=== PATIENT | female | born 1955 | race Caucasian/White ===

== ENCOUNTER 2017-01-18 13:57 | Observation (INO) | payer BC ==
[~2017-01-18] VITALS: Ht 167.6 cm; Wt 57.0 kg
[2017-01-18] VITALS (10 sets, daily range): BP systolic 85–140; BP diastolic 43–68; PULSE 50–68; RESP 18; TEMP 96.8–98.2; O2SAT 95–100
--- NOTE | 2017-01-18 14:20 | PD ---
HPI Chief Complaint: Chest Pain Time Seen by Provider: 14:19 Travel History International Travel<30 days: No Contact w/Intl Traveler<30days: No Traveled to known affect area: No History of Present Illness HPI 60-year-old female came to the emergency room with history of sudden onset substernal chest pain that started at 1:30 PM when she came out of a store. Patient says the pain was 10 out of 10 and radiated to her neck on both sides. This was a severe dull ache which took her breath away as per the patient. It lasted for about 45 minutes after which it slowly started to ease off. Currently the pain is 3 out of 10 and mostly on her upper back. It has also made her very nauseous. Patient has history of coronary artery disease and had a stent put in in 2010 in [place]. Patient is from [place] and is here on vacation. 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 She takes 1 aspirin every day. Patient continues to smoke. No history of syncopal episode or diaphoresis. Patient says that she thought she would not have to come to the emergency room but the pain never got better. [facility] Past Medical History Narrative Medical List of her past medical, surgical, social and family history is reviewed from the nursing note. Cardiovascular Problems: Yes Past Surgical History Hysterectomy: Yes Social History Tobacco Use: Yes Allergies-Medications (Allergen,Severity, Reaction): Coded Allergies: No Known Allergies (Unverified , 01/18/17) Comments No known drug allergies. Reported Meds & Prescriptions Reported Meds & Active Scripts Active Reported Gabapentin 600 Mg Tab 600 Mg PO BID Metoprolol Succinate ER 24 HR (Metoprolol Succinate) 25 Mg Tab 25 Mg PO HS Atorvastatin (Atorvastatin Calcium) 80 Mg Tab 80 Mg PO HS Narrative Medication Waiting for the nurse to do the med reconciliation. Review of Systems Except as stated in HPI: all other systems reviewed are Neg Cardiovascular: Positive: Chest Pain or Discomfort Gastrointestinal: Positive: Nausea Physical Exam Narrative GENERAL: Awake, alert, anxious, mild distress SKIN: Focused skin assessment warm/dry. HEAD: Atraumatic. Normocephalic. EYES: Pupils equal and round. No scleral icterus. No injection or drainage. ENT: No nasal bleeding or discharge. Mucous membranes pink and moist. NECK: Trachea midline. No JVD. CARDIOVASCULAR: Regular rate and rhythm. No murmur appreciated. RESPIRATORY: No accessory muscle use. Clear to auscultation. Breath sounds equal bilaterally. GASTROINTESTINAL: Abdomen soft, non-tender, nondistended. Hepatic and splenic margins not palpable. MUSCULOSKELETAL: No obvious deformities. No clubbing. No cyanosis. No edema. NEUROLOGICAL: Awake and alert. No obvious cranial nerve deficits. Motor grossly within normal limits. Normal speech. PSYCHIATRIC: Appropriate mood and affect; insight and judgment normal. Data Data Last Documented VS Vital Signs Date Time Temp Pulse Resp B/P (MAP) Pulse Ox O2 Delivery O2 Flow Rate FiO2 01/18/17 15:27 68 18 114/68 (83) 98 Room Air 01/18/17 14:20 98.2 Orders Orders Electrocardiogram (01/18/17 14:33) Basic Metabolic Panel (Bmp) (01/18/17 14:33) Complete Blood Count With Diff (01/18/17 14:33) Magnesium (Mg) (01/18/17 14:33) Prothrombin Time / Inr (Pt) (01/18/17 14:33) Troponin I (01/18/17 14:33) Chest, Single Ap (01/18/17 14:33) Ecg Monitoring (01/18/17 14:33) Bilateral Bp Monitoring (01/18/17 14:33) Iv Access Insert/Monitor (01/18/17 14:33) Oximetry (01/18/17 14:33) Oxygen Administration (01/18/17 14:33) Aspirin Chew (Aspirin Chew) (01/18/17 14:45) Sodium Chloride 0.9% Flush (Ns Flush) (01/18/17 14:45) Ondansetron Inj (Zofran Inj) (01/18/17 14:45) Nitroglycerin Sl (Nitrostat Sl) (01/18/17 14:45) Admit Order (Ed Use Only) (01/18/17 15:51) Labs Laboratory Tests Test 01/18/17 14:40 White Blood Count 10.7 TH/MM3 Red Blood Count 4.41 MIL/MM3 Hemoglobin 13.4 GM/DL Hematocrit 41.2 % Mean Corpuscular Volume 93.4 FL Mean Corpuscular Hemoglobin 30.5 PG Mean Corpuscular Hemoglobin Concent 32.7 % Red Cell Distribution Width 14.4 % Platelet Count 242 TH/MM3 Mean Platelet Volume 9.5 FL Neutrophils (%) (Auto) 64.0 % Lymphocytes (%) (Auto) 27.3 % Monocytes (%) (Auto) 4.8 % Eosinophils (%) (Auto) 3.0 % Basophils (%) (Auto) 0.9 % Neutrophils # (Auto) 6.9 TH/MM3 Lymphocytes # (Auto) 2.9 TH/MM3 Monocytes # (Auto) 0.5 TH/MM3 Eosinophils # (Auto) 0.3 TH/MM3 Basophils # (Auto) 0.1 TH/MM3 CBC Comment DIFF FINAL Differential Comment Prothrombin Time 11.2 SEC Prothromb Time International Ratio 1.0 RATIO Blood Urea Nitrogen 12 MG/DL Creatinine 0.70 MG/DL Random Glucose 86 MG/DL Calcium Level 9.1 MG/DL Magnesium Level 1.9 MG/DL Sodium Level 142 MEQ/L Potassium Level 3.6 MEQ/L Chloride Level 107 MEQ/L Carbon Dioxide Level 25.4 MEQ/L Anion Gap 10 MEQ/L Estimat Glomerular Filtration Rate 85 ML/MIN Troponin I LESS THAN 0.02 NG/ML MDM Medical Decision Making Medical Screen Exam Complete: Yes Emergency Medical Condition: Yes Medical Record Reviewed: Yes Interpretation(s) Twelve-lead EKG was reviewed by me. Normal sinus rhythm, normal axis, right bundle branch block. Heart rate of 68 bpm. Differential Diagnosis ACS, non-STEMI, no specific chest pain Narrative Course 3:16 PM patient was given 2 baby aspirin and 1 sublingual nitroglycerin. Her chest pain is very classic for angina. Given her past medical history and continues smoking history I would like to keep her in the chest pain center if all the blood test results are negative. 3:51 PM blood test results of back and within acceptable limit. I'll admit her to the chest pain center. Awaiting for a chest x-ray. Procedures EKG Prior to Arrival: No Diagnosis Primary Impression: Chest pain Qualified Codes: R07.9 - Chest pain, unspecified Admitting Information Admitting Physician Requests: Meng Steiner MD Jan 18, 2017 14:20
[2017-01-18] MEDS ORDERED: NITROGLYCERIN 0.4 MG SL 25 TABS/BTL SL ONE (14:45)
[2017-01-18] MEDS ORDERED: ONDANSETRON HCL 4 MG/2 ML VIAL IV PUSH ONE (14:45)
[2017-01-18] MEDS ORDERED: ASPIRIN 81 MG CHEW TAB PO ONE (14:45)
[2017-01-18] MEDS ORDERED: SODIUM CHLORIDE 0.9% FLUSH 10 ML FLUSH IVF PRN (14:45)
[2017-01-18 15:21] LABS: AUTOMATED NEUTROPHIL # 6.9 TH/MM3 (1.8-7.7); BASOPHIL # 0.1 TH/MM3 (0-0.2); BASOPHIL % 0.9 % (0.0-2.0); EOSINOPHIL # 0.3 TH/MM3 (0-0.4); HEMATOCRIT 41.2 % (35.0-46.0); HEMO FLAGS DIFF FINAL; LYMPH % 27.3 % (9.0-44.0); LYMPHOCYTE # 2.9 TH/MM3 (1.0-4.8); MEAN CELL VOLUME 93.4 FL (80.0-100.0); MEAN CORPUSCULAR HEMOGLOBIN 30.5 PG (27.0-34.0); MEAN CORPUSCULAR HGB CONC 32.7 % (32.0-36.0); MONO % 4.8 % (0.0-8.0); PLATELET COUNT 242 TH/MM3 (150-450); RED BLOOD COUNT 4.41 MIL/MM3 (4.00-5.30); RED CELL DISTRIBUTION WIDTH 14.4 % (11.6-17.2); WHITE BLOOD COUNT 10.7 TH/MM3 (4.0-11.0)
[2017-01-18 15:24] LABS: PROTHROMBIN TIME - PATIENT 11.2 SEC (9.8-11.6)
[2017-01-18 15:37] LABS: ANION GAP 10 MEQ/L (5-15); BICARBONATE 25.4 MEQ/L (21.0-32.0); BLOOD UREA NITROGEN 12 MG/DL (7-18); CHLORIDE 107 MEQ/L (98-107); GLOMERULAR FILTRATION RATE 85 ML/MIN (>89); MAGNESIUM 1.9 MG/DL (1.5-2.5); POTASSIUM 3.6 MEQ/L (3.5-5.1); SODIUM (NA) 142 MEQ/L (136-145)
[2017-01-18] MEDS ORDERED: NITROGLYCERIN 0.4 MG SL 25 TABS/BTL SL PRN (16:00)
[2017-01-18] MEDS ORDERED: ONDANSETRON HCL 4 MG/2 ML VIAL IV PUSH PRN (16:00)
[2017-01-18] MEDS ORDERED: ACETAMINOPHEN 500 MG CPLT PO PRN (16:00)
--- NOTE | 2017-01-18 16:08 | RADRPT ---
EXAM DATE/TIME: 01/18/2017 15:23 [facility] COMPARISON: No previous studies available for comparison. INDICATIONS : Chest Pain MEDICAL HISTORY : None. SURGICAL HISTORY : None. ENCOUNTER: Initial ACUITY: 1 day PAIN SCORE: 4/10 LOCATION: Bilateral chest FINDINGS: A single view of the chest demonstrates the lungs to be symmetrically aerated without evidence of mas s, infiltrate or effusion. The cardiomediastinal contours are unremarkable. No acute bony abnormality demonstrated. There is an old, healed fracture posterolaterally of the righ t fourth rib. CONCLUSION: No evidence of acute cardiopulmonary disease. Right fourth rib fracture that does not appear acute. Cal Evans MD on January 18, 2017 at 16:05 Board Certified Radiologist. This report was verified electronically.
--- NOTE | 2017-01-18 18:11 | HHI.HP ---
HPI Primary Care Physician Primary Care Physician in [place] Chief Complaint Chest pain History of Present Illness 61-year-old female with history of coronary artery disease and current smoker presents emergency room for further evaluation of chest pain. Onset 1:30 PM, nonexertional. Location substernal. Characterized as a quick onset of crushing pain, quickly intensified. Severity 10/10. Radiation to bilateral neck and center of back. Denied shooting pain from chest to back or ripping sensation. Duration one hour. Associated symptoms nausea. Denies shortness breath, vomiting, or diaphoresis. No known precipitating or relieving factors. Denies history of DVT or PE. Currently chest pain-free. Denies pain being similar to previous cardiac pain in 2010 prior to cardiac stent. Symptoms at that time included intense nausea, left jaw tightness with radiation to left arm, without chest pain. She is drove from [place], arrived last evening 6:30 PM. Returning . Review of Systems General: No fatigue,weakness, fever, chills, or recent illness. Has been her general state of health. Visiting from [place]. HEENT: No ROBBINS CV: As stated above. History of palpitations, reported to occur more frequently lately. No accompanied dizziness. Follows with a paintings conservator in [place], and he is aware of her palpitations. RESP: No SOB, cough, or wheeze. Current smoker. GI: No nausea, vomiting, or bowel changes. : No dysuria EXT: No lower leg edema MS: No known injury, trauma, or change in ROM NEURO: No difficulty with balance, LOC, motor/sensory deficits PSYCH: No anxiety, depression, or situational stress SKIN: No rashes, no concerning lesions Past Family Social History Allergies: Coded Allergies: No Known Allergies (Unverified , 01/18/17) Past Medical History CABG, x1 cardiac stent (2010), fibromyalgia, GERD, restless leg syndrome Past Surgical History Hysterectomy at age 23 Reported Medications Med rec not reconciled, waiting for RN to complete. Patient reports taking the following medications Metoprolol, atorvastatin, gabapentin, meloxicam, full strength aspirin, GERD medication as needed, requip Active Ordered Medications Current Medications Medications (Trade) Dose Ordered Sig/Lobito Route Start Time Stop Time Status Last Admin (NS Flush) 2 ml UNSCH PRN IVF 01/18/17 14:45 (NS Flush) 2 ml BID IV FLUSH 01/18/17 21:00 (Tylenol) 500 mg Q4H PRN PO 01/18/17 16:00 (Zofran Inj) 4 mg Q6H PRN IV PUSH 01/18/17 16:00 (Nitrostat Sl) 0.4 mg Q5M PRN SL 01/18/17 16:00 (Aspirin) 325 mg DAILY PO 01/19/17 09:00 Family History Father CABG 5 in mid 60s. Sister 2 cardiac stents at age 59 Social History Known coronary artery disease. No known diabetes, hypertension, or hyperlipidemia. Appropriate lead taking statin therapy for known coronary artery disease. Current smoker one half pack daily. Rare alcohol use. Denies any illegal drug use. Endorses an active lifestyle. Visiting from [place]. Past cardiac testing No recent stress testing. 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 Last seen August 2016 Physical Exam Vital Signs Vital Signs Date Time Temp Pulse Resp B/P (MAP) Pulse Ox O2 Delivery O2 Flow Rate FiO2 01/18/17 17:16 01/18/17 16:05 99 21 01/18/17 15:27 68 18 114/68 (83) 98 Room Air 01/18/17 15:14 98 Room Air 01/18/17 15:14 98 Room Air 01/18/17 14:20 98.2 65 18 140/60 (86) 100 Room Air 01/18/17 14:20 65 18 100 Room Air Physical Exam GENERAL: Alert WN, WD, NAD, pleasant, female who appears older than stated age HEAD: NC, AT EYES: Sclera clear, conjunctiva without injection, pupils equal and round ENT: Mucous membranes pink and moist NECK: Supple, no masses, trachea midline CV: RRR, without murmur, rub, gallop, no JVD, S1-S2 no S3-S4. No carotid bruits. Substernal chest wall pain reproduced with palpation. RESP: Clear lungs throughout bilateral, no crackles, wheeze, rhonchi, symmetrical chest rise, nonlabored, able to speak in full sentences ABD: Soft, NT, ND, no masses, positive bowel tones EXT: Pulses +24, no dependent edema MS: Normal tone 4 extremities, no obvious deformities, full range of motion NEURO: CN II through CN XII grossly intact, motor strength 5/5 PSYCH: A+O 3, pleasant affect, appropriate speech, appropriate mood, insight and judgment SKIN: Normal turgor, normal texture, even hair distribution Laboratory Laboratory Tests Test 01/18/17 14:40 White Blood Count 10.7 Red Blood Count 4.41 Hemoglobin 13.4 Hematocrit 41.2 Mean Corpuscular Volume 93.4 Mean Corpuscular Hemoglobin 30.5 Mean Corpuscular Hemoglobin Concent 32.7 Red Cell Distribution Width 14.4 Platelet Count 242 Mean Platelet Volume 9.5 Neutrophils (%) (Auto) 64.0 Lymphocytes (%) (Auto) 27.3 Monocytes (%) (Auto) 4.8 Eosinophils (%) (Auto) 3.0 Basophils (%) (Auto) 0.9 Neutrophils # (Auto) 6.9 Lymphocytes # (Auto) 2.9 Monocytes # (Auto) 0.5 Eosinophils # (Auto) 0.3 Basophils # (Auto) 0.1 CBC Comment DIFF FINAL Differential Comment Prothrombin Time 11.2 Prothromb Time International Ratio 1.0 Blood Urea Nitrogen 12 Creatinine 0.70 Random Glucose 86 Calcium Level 9.1 Magnesium Level 1.9 Sodium Level 142 Potassium Level 3.6 Chloride Level 107 Carbon Dioxide Level 25.4 Anion Gap 10 Estimat Glomerular Filtration Rate 85 Troponin I LESS THAN 0.02 Result Diagram: 01/18/17 1440 01/18/17 1440 Imaging Last Impressions Chest X-Ray 01/18/17 1433 Signed Impressions: Service Date/Time: Wednesday, January 18, 2017 15:23 - CONCLUSION: No evidence of acute cardiopulmonary disease. Right fourth rib fracture that does not appear acute. Cal Evans MD Course EKG First EKG-normal sinus rhythm with right bundle branch block Caprini VTE Risk Assessment Caprini VTE Risk Assessment: Mod/High Risk (score >= 2) Caprini Risk Assessment Model Point Value = 1 Point Value = 2 Point Value = 3 Point Value = 5 Age 41-60 Minor surgery BMI > 25 kg/m2 Swollen legs Varicose veins or History of unexplained or recurrent spontaneous Oral contraceptives or hormone replacement Sepsis (< 1 month) Serious lung disease, including pneumonia (< 1 month) Abnormal pulmonary function Acute myocardial infarction Congestive heart failure (< 1 month) History of inflammatory bowel disease Medical patient at bed rest Age 61-74 Arthroscopic surgery Major open surgery (> 45 min) Laparoscopic surgery (> 45 min) Malignancy Confined to bed (> 72 hours) Immobilizing plaster cast Central venous access Age >= 75 History of VTE Family history of VTE Factor V Leiden Prothrombin [id number] Lupus anticoagulant Anticardiolipin antibodies Elevated serum homocysteine Heparin-induced thrombocytopenia Other congenital or acquired thrombophilia Stroke (< 1 month) Elective arthroplasty Hip, pelvis, or leg fracture Acute spinal cord injury (< 1 month) Prophylaxis Regimen Total Risk Factor Score Risk Level Prophylaxis Regimen 0-1 Low Early ambulation 2 Moderate Order ONE of the following: *Sequential Compression Device (SCD) *Heparin 5000 units SQ BID 3-4 Higher Order ONE of the following medications: *Heparin 5000 units SQ TID *Enoxaparin/Lovenox 40 mg SQ daily (WT < 150 kg, CrCl > 30 mL/min) *Enoxaparin/Lovenox 30 mg SQ daily (WT < 150 kg, CrCl > 10-29 mL/min) *Enoxaparin/Lovenox 30 mg SQ BID (WT < 150 kg, CrCl > 30 mL/min) AND/OR *Sequential Compression Device (SCD) 5 or more Highest Order ONE of the following medications: *Heparin 5000 units SQ TID (Preferred with Epidurals) *Enoxaparin/Lovenox 40 mg SQ daily (WT < 150 kg, CrCl > 30 mL/min) *Enoxaparin/Lovenox 30 mg SQ daily (WT < 150 kg, CrCl > 10-29 mL/min) *Enoxaparin/Lovenox 30 mg SQ BID (WT < 150 kg, CrCl > 30 mL/min) AND *Sequential Compression Device (SCD) Assessment and Plan Assessment and Plan #1 Chest pain-admitted to chest pain center. Rule out with 3 sets of EKGs and cardiac enzymes. Will be seen and evaluated by Dr. Aguila Zaman. Discussed likely she will complete a stress test in a.m. This will be determined by paintings conservator. Patient is agreeable to plan of care. Instructed her to notify RN if she develops any further chest discomfort. Verbalized understanding. #2 History of CAD-continue metoprolol, atorvastatin, and aspirin #3 Fibromyalgia-continue gabapentin #4 Restless leg syndrome-continue Requip #5 Tobacco use-jaw encouraged and stressed the importance of tobacco cessation. Instructed to quit smoking. Pau León Jan 18, 2017 18:11
[2017-01-18] MEDS ORDERED: ATOR80TA45 PO ×2 (18:27)
[2017-01-18] MEDS ORDERED: PRAV80TA2 PO (18:27)
[2017-01-18] MEDS ORDERED: METO1TAB42 PO (18:31)
[2017-01-18] MEDS ORDERED: GABA600T PO (18:34)
[2017-01-18 18:42] LABS: CREATINE KINASE 55 U/L (26-192)
[2017-01-18] MEDS: SODIUM CHLORIDE 0.9% FLUSH 10 ML FLUSH IV FLUSH SCH (20:29)
[2017-01-18] MEDS: GABAPENTIN 300 MG CAP PO SCH (20:30)
[2017-01-18] MEDS ORDERED: METOPROLOL SUCCINATE 25 MG EXTENDED RELEASE TAB PO SCH (21:00)
[2017-01-18] MEDS ORDERED: ATORVASTATIN 80 MG TAB PO SCH (21:00)
[2017-01-18 23:22] LABS: CREATINE KINASE 51 U/L (26-192)
[2017-01-19 03:46] VITALS: BP 95/45; PULSE 68; RESP 18; TEMP 98.2; O2SAT 95
[2017-01-19 07:57] VITALS: BP 108/55; PULSE 55; RESP 16; TEMP 98.6; O2SAT 96
--- NOTE | 2017-01-19 08:46 | EKG ---
Date Performed: 01/18/2017 Time Performed: 20:05:26 PTAGE: 61 years EKG: Sinus rhythm RIGHT BUNDLE BRANCH BLOCK ABNORMAL ECG PREVIOUS TRACING : 01/18/2017 17.50 Since previous tracing, no significant change noted DOCTOR: Aguila Zaman Interpretating Date/Time 01/19/2017 08:44:45
--- NOTE | 2017-01-19 08:47 | EKG ---
Date Performed: 01/18/2017 Time Performed: 13:52:22 PTAGE: 61 years EKG: Sinus rhythm POSSIBLE LEFT ATRIAL ENLARGEMENT RIGHT BUNDLE BRANCH BLOCK ABNORMAL ECG NO PREVIOUS TRACING DOCTOR: Aguila Zaman Interpretating Date/Time 01/19/2017 08:45:39
--- NOTE | 2017-01-19 08:47 | EKG ---
Date Performed: 01/18/2017 Time Performed: 17:50:31 PTAGE: 61 years EKG: SINUS BRADYCARDIA WITH SINUS ARRHYTHMIA ARM LEADS REVERSED BORDERLINE ECG PREVIOUS TRACING : 01/18/2017 13.52 DOCTOR: Aguila Zaman Interpretating Date/Time 01/19/2017 08:45:14
[2017-01-19] MEDS: SODIUM CHLORIDE 0.9% FLUSH 10 ML FLUSH IV FLUSH SCH (09:00)
[2017-01-19] MEDS: GABAPENTIN 300 MG CAP PO SCH (09:00)
[2017-01-19] MEDS ORDERED: ASPIRIN 325 MG TAB PO SCH (09:00)
[2017-01-19] MEDS ORDERED: REGADENOSON INJ 0.4 MG/5 ML SYR ONE (09:50)
--- NOTE | 2017-01-19 10:50 | RADRPT ---
EXAM DATE/TIME: 01/19/2017 09:30 [facility] COMPARISON: No previous studies available for comparison. INDICATIONS : Substernal chest pain. Angina. Coronary artery disease. DOSE: 25.4 mCi Tc99m Myoview at stress. 8.5 mCi Tc99m Myoview at rest. 0.4 mg Lexiscan STRESS SYMPTOMS: Nausea, headache, arms numb, legs heavy and chest pain. EJECTION FRACTION: 65% MEDICAL HISTORY : Hypertension. Fibromyalgia. SURGICAL HISTORY : Hysterectomy. CABG Coronary artery stent. ENCOUNTER: Initial ACUITY: 1 day PAIN SCALE: 5/10 LOCATION: Substernal chest TECHNIQUE: The patient underwent pharmacologic stress with infusion of prescribed dose. Continuous ECG tracing was monitored during stress. Gated SPECT imaging was performed after stress and conventional SPECT i maging was performed at rest. The examination was performed on a SPECT/CT scanner, both attenuation and non-corrected datasets were reviewed. FINDINGS: DISTRIBUTION: Moderate gut activity does obscure the inferior wall. The best perfused myocardium in the septum, followed by the anterior wall. PERFUSION STUDY: There is no redistribution to suggest ischemia. GATED STUDY: There is intact wall motion and thickening without hypokinetic or dyskinetic segments. CONCLUSION: Negative for stress-induced ischemia. RISK CATEGORY: Low (<1% Annual Mortality Rate) Colin Bar MD FACR on January 19, 2017 at 10:47 Board Certified Radiologist. This report was verified electronically.
--- NOTE | 2017-01-19 11:09 | HHI.DCPOC ---
Discharge Care Plan Diagnosis: (1) CAD (coronary artery disease) (2) H/O heart artery stent (3) Chest pain Goals to Promote Your Health * To prevent worsening of your condition and complications * To maintain your health at the optimal level Directions to Meet Your Goals Take your medications as prescribed Follow your dietary instruction Follow activity as directed Keep your appointments as scheduled Take your immunizations and boosters as scheduled If your symptoms worsen call your PCP, if no PCP go to Urgent Care Center or Emergency Room Smoking is Dangerous to Your Health. Avoid second hand smoke Call the 24-hour hour crisis hotline for domestic abuse at Yoseph Gutierrez Jan 19, 2017 11:09
[2017-01-19 11:23] VITALS: BP 108/53; PULSE 64; RESP 16; TEMP 98.3; O2SAT 98
--- NOTE | 2017-01-20 16:35 | TR ---
Date Performed: 01/19/2017 Time Performed: 09:48:21 DOCTOR: Raine Pompa DRUG LIST: CLINICAL HISTORY: CHEST PAIN REASON FOR TEST: CHEST PAIN REASON FOR ENDING: OBSERVATION: CONCLUSION: Lexiscan stress test was performed under standard four minute protocol. Radionuclid e was injected one minute prior to ending the test. No electrocardiographic abormalities were present to suggest ischemia. Nuclear imaging and interpretation are pending. COMMENTS:
== END 2017-01-19 11:49 | disposition home or self-care (01) ==
LOC: NEPE 13:57 → NEDA 15:52 → NEPFCDU 17:15
PROVIDERS: ADMIT Internal Medicine Cardiovascular Disease; ATTEND Internal Medicine Cardiovascular Disease
DX: I25.10 Atherosclerotic heart disease of native coronary artery without angina pectoris (principal); R11.0 Nausea; G25.81 Restless legs syndrome; M79.7 Fibromyalgia; K21.9 Gastro-esophageal reflux disease without esophagitis; Z95.1 Presence of aortocoronary bypass graft; F17.210 Nicotine dependence, cigarettes, uncomplicated; Z95.5 Presence of coronary angioplasty implant and graft
CPT/HCPCS: 71010; 78452; 80048; 82550; 83735; 84484; 85025; 85379; 85610; 93005; 93017; 99285; A9502; G0378; J2405; J2785